=== PATIENT | female | born 1990 | race Caucasian/White ===

== ENCOUNTER 2019-12-30 14:51 | Inpatient (IN) | payer OTHER ==
--- NOTE | 2019-12-30 15:30 | BHS.RME ---
Substance Use & Tx History - Substance Use History Heroin Substance amount: 1-2 bundles Frequency of use: Daily Substance route: Inhalation (ex: sniffing or snorting) Date of Last Use: 12/30/19 (First use this year. No OD, NO Narcan at home) Alcohol Substance amount: 1-2 pints Frequency of use: More than 3 times per week Substance route: Oral Date of Last Use: 12/28/19 (First use this year) Xanax Substance amount: 2-3 tabs of 2 mg each Frequency of use: More than 3 times per week Substance route: Oral Date of Last Use: 12/28/19 (First use this year) Nicotine Substance amount: 10 cigs Frequency of use: Daily Substance route: Smoking Date of Last Use: 12/30/19 (First use age 24 y) Physical/Psych/Mental Status - Behavior General Behavior: Increased activity (restlessness, agitation) Eye Contact: Normal - Cooperativeness Cooperativeness: Cooperative - Thinking Thought Processes: Tight Thought content: Future oriented - Physical Health Problems Is patient presently having any pain?: No Does patient presently have any injuries (include location): No COWS - Scale Resting Pulse: 2= [place] 101-120 Sweatin= Chills/Flushing Restless Observation: 0= Sits Still Pupil Size: 1= Pupils >than Normal Bone or Joint Aches: 0= None Runny Nose/ Eye Tearin= Nasal Congestion GI Upset > 30mins: 0= None Tremor Observation: 0= None Yawning Observation: 0= None Anxiety or Irritability: 0= None Goose Flesh Skin: 0=Smooth Skin COWS Score: 5 CIWA Nausea/Vomitin-No Nausea/No Vomiting Muscle Tremors: None Anxiety: 0-No Anxiety, at Ease Agitation: 0-Normal Activity Paroxysmal Sweats: 1-Minimal Palms Moist Orientation: 0-Oriented Tacttile Disturbances: 0-None Auditory Disturbances: 1-Very Mild Visual Disturbances: 0-None Headache: 0-None Present CIWA-Ar Total Score: 2
--- NOTE | 2019-12-30 17:56 | HP ---
COWS - Scale Resting Pulse: 2= [place] 101-120 Sweatin=Flushed/Facial Moisture Restless Observation: 1= Difficult to Sit Still Pupil Size: 2= Moderately Dilated (Pupils = 4 mm) Bone or Joint Aches: 0= None Runny Nose/ Eye Tearin= Nasal Congestion GI Upset > 30mins: 1= Stomach Cramp Tremor Observation: 1= Tremor [place], Not Seen Yawning Observation: 0= None Anxiety or Irritability: 2=Irritable/Anxious Goose Flesh Skin: 0=Smooth Skin COWS Score: 12 CIWA Score Nausea/Vomitin-No Nausea/No Vomiting Muscle Tremors: 1-None Visible, but [place] Anxiety: 1-Mildly Anxious Agitation: 1-Slight > Activity Paroxysmal Sweats: 3 Orientation: 0-Oriented Tacttile Disturbances: 0-None Auditory Disturbances: 0-None Visual Disturbances: 0-None Headache: 0-None Present CIWA-Ar Total Score: 6 - Admission Criteria OAS Guidelines: Admission for Medically Managed Detox: Requires at least one of the followin. CIWA greater than 12 2. Seizures within the past 24 hours 3. Delirium tremens within the past 24 hours 4. Hallucinations within the past 24 hours 5. Acute intervention needed for co occurring medical disorder 6. Acute intervention needed for co occurring psychiatric disorder 7. Severe withdrawal that cannot be handled at a lower level of care (continued vomiting, continued diarrhea, abnormal vital signs) requiring intravenous medication and/or fluids 8. Patient presents the following: None of the above Admission Criteria Met: Admission criteria not met Admission ROS S - [facility] Chief Complaint: "I'm here because I want to detox and get off drugs" Allergies/Adverse Reactions: Allergies Allergy/AdvReac Type Severity Reaction Status Date / Time Penicillins Allergy Verified 12/30/19 18:30 History of Present Illness: 29 yo presents with withdrawal symptoms seeking detox. Utox: + MOP/FEN/ RACHELL: 0.0 HCG: Neg Hx alcohol related blackout - states last 5 days ago. Denies seizures or overdoses. Alcohol use began off and on since age 24. Heavy use began about 4-5 months ago. Currently drinking 1 pint 3x/wk. Last drink 2 days ago. Heroin use began at age 29. Using for about 4 -5 months. 2-4 bundles/d ay/nasally. Last used today about 12 noon. Denies methadone. States was treated about 1 week ago w/ methadone but left. Xanax use began at age 29 x past 4-5 months. Last used about 2 days ago. (Utox neg for BZO) Nicotine use began at age 24. Smokes 3-4 cig/day. Today's EKG reviewed. Patient concerned about withdrawal symptoms and requesting a split dose taper. Patient declines nicotine patch - will accept prn nicotine gum. PMHx: (R) ear Infection - on ear drops - has 4 days left to take. States dx'd w/ COVID in April 2019 - states was isolated. No recent known exposure. MHHx: Insomnia. Denies other issues. Denies thoughts of harming self or others. SHx: Domiciled. Unemployed. Denies legal issues. Search Terms: Yolanda Mathis, 1990 Search Date: 12/30/2019 18:09:29 PM The Drug Utilization Report below displays all of the controlled substance prescriptions, if any, that your patient has filled in the last twelve months. The information displayed on this report is compiled from pharmacy submissions to the Department, and accurately reflects the information as submitted by the pharmacies. This report was requested by: Sudha Smith | Reference #: [id number] There are no results for the search terms that you entered. Exam Limitations: No Limitations - Ebola screening Have you traveled outside of the country in the last 21 days: No (Hx COVID 04/2019) Have you had contact with anyone from an Ebola affected area: No Have you been sick,other than usual withdrawal symptoms: No Do you have a fever: No - Review of Systems Constitutional: Chills, Diaphoresis, Changes in sleep (Difficulty falling and staying asleep), Unintentional Wgt. Loss EENT: reports: Ear Discharge (Was in (R) ear - but resolving), Nose Congestion Respiratory: reports: No Symptoms reported Cardiac: reports: No Symptoms Reported GI: reports: No Symptoms Reported : reports: No Symptoms Reported Musculoskeletal: reports: No Symptoms Reported Integumentary: reports: No Symptoms Reported Neuro: reports: Tremors Endocrine: reports: No Symptoms Reported Hematology: reports: No Symptoms Reported Psychiatric: reports: Judgement Intact, Orientated x3, Agitated, Anxious Patient History - PPD History Previous Implant?: Yes Documented Results: Negative w/o proof Implanted On Prior [facility] Admission?: No PPD to be Administered?: Yes - Reproductive History Patient is a Female of Child Bearing Age (11 -55 yrs old): Yes Last Menstrual Period: 11/07/19 (usually irregular) Patient : No - Smoking Cessation Smoking history: Current every day smoker Have you smoked in the past 12 months: Yes Aproximately how many cigarettes per day: 4 Hx Chewing Tobacco Use: No Initiated information on smoking cessation: Yes 'Breaking Loose' booklet given: 12/30/19 - Substance & Tx. History Hx Alcohol Use: Yes Hx Substance Use: Yes Substance Use Type: Alcohol, Heroin, Opiates Hx Substance Use Treatment: Yes (detox (did not complete)) - Substances abused Heroin Substance route: Inhalation Frequency: Daily Amount used: 3 to 4 bundles Age of first use: 29 Date of last use: 12/30/19 Alprazolam (Xanax) Substance route: Oral Frequency: Daily Amount used: not sure of the dose Age of first use: 29 Date of last use: 12/29/19 Alcohol Substance route: Oral Frequency: Daily Amount used: 1 pint of liqour Age of first use: 24 Date of last use: 12/28/19 Admission Physical Exam S - Physical General Appearance: Yes: Nourished, Mild Distress, Tremorous, Irritable, Sweating (Increased facial mositure), Anxious HEENTM: Yes: Normal ENT Inspection, Normocephalic, Normal Voice, CHON (Pupils = 4 mm), Pharynx Normal, TM Dull ((R) TM dull. (L) TM wnl. External canals w/o erythema or exudate), Nasal Congestion Respiratory: Yes: Lungs Clear (Pulse Ox = 99%), Normal Breath Sounds, No Respiratory Distress Neck: Yes: No masses,lesions,Nodules, Supple Breast: Yes: Breast Exam Deferred Cardiology: Yes: Regular Rhythm, S1, S2, Tachycardia (HR: 102) Abdominal: Yes: Non Tender, Flat, Soft, Increased Bowel Sounds Genitourinary: Yes: Within Normal Limits Back: Yes: Normal Inspection Musculoskeletal: Yes: full range of Motion, Gait Steady Extremities: Yes: Normal Capillary Refill, Tremors (Slight tremors) Neurological: Yes: Fully Oriented, Alert, Motor Strength 5/5, Normal Response Integumentary: Yes: Normal Color, Warm, Moist (Increased facial moisture), Rash (scattered papular lesions on face, chest and back) Lymphatic: Yes: Within Normal Limits - Diagnostic (1) Opioid dependence with withdrawal Current Visit: Yes Status: Acute (2) History of alcohol use Current Visit: Yes Status: Suspected Comment: Early remission (3) History of anxiolytic abuse Current Visit: Yes Status: Suspected Comment: Early remission (4) Acne Current Visit: Yes Status: Chronic Qualifiers: Acne type: unspecified acne Qualified Code(s): L70.9 - Acne, unspecified (5) Nicotine dependence, unspecified, uncomplicated Current Visit: Yes Status: Chronic Qualifiers: Nicotine product type: cigarettes Qualified Code(s): F17.210 - Nicotine dependence, cigarettes, uncomplicated (6) Insomnia Current Visit: Yes Status: Chronic Qualifiers: Insomnia type: unspecified Qualified Code(s): G47.00 - Insomnia, unspecified (7) History of otitis Current Visit: Yes Status: Acute Comment: On prescribed ear antibiotic ear drops x 6 days. Cleared for Admission [facility] - Detox or Rehab [facility] Level of Care: Medically Managed Detox Regimen/Protocol: Methadone (Patient requesting split dosing for detox) Claeared for Rehab Admission: No Breathalyzer - Breathalyzer Breathalyzer: 0 POC Urine test - Test device test lot number: [id number] Expiration date: 03/31/21 - Control test control: Yes - Result Urine Test Results: Negative - NO line present Inpatient Rehab Admission - Rehab Decision to Admit Inpatient rehab admission?: No
[2019-12-30] MEDS ORDERED: IBUPROFEN 400 MG TABLET (FP) PO PRN (18:49)
[2019-12-30] MEDS ORDERED: ACETAMINOPHEN 325 MG TABLET (FP) PO PRN ×2 (18:49)
[2019-12-30] MEDS ORDERED: MAGNESIUM HYDROX 2400MG/30ML ORAL SUSPENSION 30 ML CUP PO PRN (18:49)
[2019-12-30] MEDS ORDERED: BISMUTH SUBSALICYLATE 524 MG/30 ML UD PO PRN (18:49)
[2019-12-30] MEDS ORDERED: ONDANSETRON *ODT* 4 MG TABLET SL ONE (18:49)
[2019-12-30] MEDS ORDERED: P-EPHED 60MG/TRIPROLIDI 2.5MG TABLET PO PRN (18:49)
[2019-12-30] MEDS ORDERED: NICOTINE POLACRILEX 2 MG GUM BUC PRN (18:49)
[2019-12-30] MEDS ORDERED: MENTHOL/PHENOL 1 EACH UD MM PRN (18:49)
[2019-12-30] MEDS ORDERED: MAGNESIUM CITRATE 300 ML BOTTLE PO PRN (18:49)
[2019-12-30] MEDS ORDERED: METHOCARBAMOL 500 MG TABLET PO PRN (18:49)
[2019-12-30] MEDS ORDERED: guaiFENesin 200 MG/10 ML 10 ML UNIT-DOSE CUPS PO PRN (18:49)
[2019-12-30] MEDS ORDERED: MAG HYDROX/AL HYDROX/SIMETH 30 ML UNIT-DOSE CUP PO PRN (18:49)
[2019-12-30] MEDS ORDERED: cloNIDine HCL 0.1 MG TABLET PO PRN (18:49)
[2019-12-30] MEDS ORDERED: METHADONE HCL 10 MG TABLET (FOR DETOX USE ONLY) PO ONE ×2 (19:01→23:00)
[2019-12-30 19:09] VITALS: BMI 26.6
[2019-12-30] MEDS ORDERED: COLLOIDAL OATMEAL 1 BAR EACH TP PRN (19:49)
[2019-12-30] MEDS ORDERED: TRIMETHOBENZAMIDE HCL 200MG/2ML INJ IM PRN (19:49)
[2019-12-30] MEDS: diazePAM 5 MG TABLET PO PRN (19:57)
[2019-12-30] MEDS ORDERED: diazePAM 5 MG TABLET PO PRN (20:02)
[2019-12-30] MEDS ORDERED: hydrOXYzine PAMOATE 25 MG CAPSULE (FP) PO SCH (22:00)
[2019-12-30] MEDS: MELATONIN 5 MG TABLETS PO SCH (22:17)
[2019-12-30] MEDS: THIAMINE HCL 100 MG TABLET (FP) PO SCH (22:19)
[2019-12-30] MEDS: NEOMYCIN/POLYMYXN/HC OTIC SUSPENSION 10 ML BOTTLE AD SCH ×2 (22:24→23:23)
[2019-12-30] MEDS ORDERED: traZODone HCL 50 MG TABLET (FP) PO ONE (23:00)
[2019-12-31] MEDS: diazePAM 5 MG TABLET PO PRN ×2 (06:42→22:15)
[2019-12-31] MEDS: NEOMYCIN/POLYMYXN/HC OTIC SUSPENSION 10 ML BOTTLE AD SCH ×5 (06:44→23:54)
[2019-12-31] MEDS ORDERED: METHADONE HCL 10 MG TABLET (FOR DETOX USE ONLY) PO ONE (10:00)
[2019-12-31] MEDS: PRENATAL VITAMINS W/ FOLIC ACID TABLET (FP) PO SCH (10:20)
[2019-12-31 10:58] LABS: HEMATOCRIT 39.3 % (32.4-45.2); MCH 28.2 pg (25.7-33.7); MCHC 33.2 g/dl (32.0-36.0); MEAN CELL VOLUME 84.9 fl (80-96); MEAN PLT VOLUME 10.6 fl (7.5-11.1); PLATELET COUNT 192 K/MM3 (134-434); RBC 4.63 M/mm3 (3.60-5.2); RDW 13.5 % (11.6-15.6); WHITE BLOOD COUNT 7.7 K/mm3 (4.0-10.0)
--- NOTE | 2019-12-31 11:36 | CONSULT ---
[facility] Psychiatric Consult - Data Date of interview: 12/31/19 Admission source: [facility] Identifying data: First visit to [facility] [place] and admission to [address] [place] [address] for this 29 y/o female self-referred for detoxification treatment. KANWAL issues : alcohol, opioid, benzodiazepine (xanax), nicotine. Patient is single, no dependents, domiciled, unemployed and supported on food stamps. Substance Abuse History: Discussed with the patient. KANWAL profile as follows : Smoking history: Current every day smoker. Have you smoked in the past 12 months: Yes. Aproximately how many cigarettes per day: 4. Hx Chewing Tobacco Use: No. Initiated information on smoking cessation: Yes. 'Breaking Loose' booklet given: 12/30/19. - Substance & Tx. History. Hx Alcohol Use: Yes. Hx Substance Use: Yes. Substance Use Type: Alcohol, Heroin, Opiates. Hx Substance Use Treatment: Yes (detox (did not complete)). - Substances abused. Heroin. Substance route: Inhalation. Frequency: Daily. Amount used: 3 to 4 bundles. Age of first use: 29. Date of last use: 12/30/19. Alprazolam (Xanax). Substance route: Oral. Frequency: Daily. Amount used: not sure of the dose. Age of first use: 29. Date of last use: 12/29/19. Alcohol. Substance route: Oral. Frequency: Daily. Amount used: 1 pint of liqour. Age of first use: 24. Date of last use: 12/28/19. History of multiple KANWAL treatment failures. Medical History: Patient endorses good general health. Psychiatric History: Patient denies history of psychiatric hospitalizations, OPD care or suicide attempts. Physical/Sexual Abuse/Trauma History: Not discussed. Patient declines. Additional Comment: Toxicology is positive for opiates. Mental Status Exam - Mental Status Exam Alert and Oriented to: Time, Place, Person Cognitive Function: Good Patient Appearance: Unkempt, Disheveled Mood: Withdrawn, Irritable Affect: Mood Congruent, Constricted Patient Behavior: Fatigued, Appropriate, Cooperative Speech Pattern: Clear, Appropriate Voice Loudness: Normal Thought Process: Intact, Goal Oriented Thought Disorder: Not Present Hallucinations: Denies Suicidal Ideation: Denies Homicidal Ideation: Denies Insight/Judgement: Poor Sleep: Poorly, Difficulty falling asleep Appetite: Good Gait/Station: Normal Psychiatric Findings - Problem List ([place] 1, 2,3) (1) Opioid dependence with withdrawal Current Visit: Yes Status: Acute (2) Alcohol use disorder Current Visit: Yes Status: Chronic (3) Benzodiazepine dependence Current Visit: Yes Status: Chronic (4) Nicotine dependence, unspecified, uncomplicated Current Visit: Yes Status: Chronic Qualifiers: Nicotine product type: cigarettes Qualified Code(s): F17.210 - Nicotine dependence, cigarettes, uncomplicated (5) Substance induced mood disorder Current Visit: Yes Status: Suspected (6) Insomnia Current Visit: Yes Status: Chronic Qualifiers: Insomnia type: unspecified Qualified Code(s): G47.00 - Insomnia, unspe cified - Initial Treatment Plan Initial Treatment Plan: Psychoeducation. Sleep hygiene. Detoxification. Insomnia is addressed with melatonin at bedtime (with patient's consent). Observation.
[2019-12-31] MEDS ORDERED: PNEUMOC 13-VAL CONJ-DIP CRM/PF 0.5 ML DISP.SYRIN IM ONE (12:00)
[2019-12-31 12:12] LABS: ALBUMIN 3.4 g/dl (3.4-5.0); BILIRUBIN,TOTAL 0.3 mg/dL (0.2-1); BLOOD UREA NITROGEN 11.4 mg/dL (7-18); CALCIUM 8.9 mg/dL (8.5-10.1); CREATININE 0.8 mg/dL (0.55-1.3); POTASSIUM 3.9 mmol/L (3.5-5.1); TOT PROT 6.6 g/dl (6.4-8.2)
--- NOTE | 2019-12-31 12:20 | PN ---
[facility] CIWA - CIWA Score Nausea/Vomitin-No Nausea/No Vomiting Muscle Tremors: None Anxiety: 2 Agitation: 0-Normal Activity Paroxysmal Sweats: 3 Orientation: 0-Oriented Tacttile Disturbances: 0-None Auditory Disturbances: 0-None Visual Disturbances: 0-None Headache: 1-Very Mild CIWA-Ar Total Score: 6 BHS COWS - Scale Resting Pulse: 0= [place] 80 or Below Sweatin= No chills or Flushing Restless Observation: 1= Difficult to Sit Still Pupil Size: 0= Normal to Room Light Bone or Joint Aches: 2= Severe Diffuse Aches Runny Nose/ Eye Tearin= None GI Upset > 30mins: 0= None Tremor Observation of Outstretched Hands: 0= None Yawning Observation: 1= 1-2x During Session Anxiety or Irritability: 2=Irritable/Anxious Goose Flesh Skin: 0=Smooth Skin COWS Score: 6 S Progress Note (SOAP) Subjective: c/o headache, anxiety, irritability, and muscle aches. Objective: 12/31/19 12:19 Vital Signs 12/31/19 12/31/19 06:57 09:09 Temperature 97.1 F L 97.3 F L Pulse Rate 65 58 L Respiratory 18 16 Rate Blood Pressure 101/69 84/45 L O2 Sat by Pulse 96 Oximetry (%) Laboratory Last Values WBC 7.7 K/mm3 (4.0-10.0) 12/31/19 07:30 RBC 4.63 M/mm3 (3.60-5.2) 12/31/19 07:30 Hgb 13.0 GM/dL (10.7-15.3) 12/31/19 07:30 Hct 39.3 % (32.4-45.2) 12/31/19 07:30 MCV 84.9 fl (80-96) 12/31/19 07:30 MCH 28.2 pg (25.7-33.7) 12/31/19 07:30 MCHC 33.2 g/dl (32.0-36.0) 12/31/19 07:30 RDW 13.5 % (11.6-15.6) 12/31/19 07:30 Plt Count 192 K/MM3 (134-434) 12/31/19 07:30 MPV 10.6 fl (7.5-11.1) 12/31/19 07:30 Sodium 140 mmol/L (136-145) 12/31/19 07:30 Potassium 3.9 mmol/L (3.5-5.1) 12/31/19 07:30 Chloride 106 mmol/L (98-107) 12/31/19 07:30 Carbon Dioxide 29 mmol/L (21-32) 12/31/19 07:30 Anion Gap 5 MMOL/L (8-16) L 12/31/19 07:30 BUN 11.4 mg/dL (7-18) 12/31/19 07:30 Creatinine 0.8 mg/dL (0.55-1.3) 12/31/19 07:30 Est GFR (CKD-EPI)AfAm 114.66 12/31/19 07:30 Est GFR (CKD-EPI)NonAf 98.93 12/31/19 07:30 Random Glucose 77 mg/dL (74-106) 12/31/19 07:30 Calcium 8.9 mg/dL (8.5-10.1) 12/31/19 07:30 Total Bilirubin 0.3 mg/dL (0.2-1) 12/31/19 07:30 AST 13 U/L (15-37) L 12/31/19 07:30 ALT 15 U/L (13-61) 12/31/19 07:30 Alkaline Phosphatase 55 U/L (45-117) 12/31/19 07:30 Total Protein 6.6 g/dl (6.4-8.2) 12/31/19 07:30 Albumin 3.4 g/dl (3.4-5.0) 12/31/19 07:30 Syphilis Serology Non-reactive (NONREACTIVE) 12/31/19 07:30 HIV Ag/Ab Combo Qual Negative (NEGATIVE) 12/31/19 07:30 Labs noted. Assessment: 12/31/19 12:19 AOX3, in no acute respiratory distress. Full ROM, ambulating in the unit. Withdrawal symptoms. Plan: continue detox.
[2019-12-31] MEDS: MELATONIN 5 MG TABLETS PO SCH (22:13)
[2019-12-31] MEDS: THIAMINE HCL 100 MG TABLET (FP) PO SCH (22:13)
[2019-12-31] MEDS ORDERED: METHADONE HCL 5 MG TABLET (FOR DETOX USE ONLY) PO ONE (23:00)
[2020-01-01] MEDS: NEOMYCIN/POLYMYXN/HC OTIC SUSPENSION 10 ML BOTTLE AD SCH ×4 (06:12→23:49)
[2020-01-01] MEDS: PRENATAL VITAMINS W/ FOLIC ACID TABLET (FP) PO SCH (09:39)
[2020-01-01] MEDS ORDERED: METHADONE HCL 10 MG TABLET (FOR DETOX USE ONLY) PO ONE ×2 (10:00→23:00)
--- NOTE | 2020-01-01 10:29 | PN ---
S CIWA - CIWA Score Nausea/Vomitin-No Nausea/No Vomiting Muscle Tremors: 2 Anxiety: 1-Mildly Anxious Agitation: 0-Normal Activity Paroxysmal Sweats: 1-Minimal Palms Moist Orientation: 0-Oriented Tacttile Disturbances: 0-None Auditory Disturbances: 0-None Visual Disturbances: 0-None Headache: 1-Very Mild CIWA-Ar Total Score: 5 BHS COWS - Scale Resting Pulse: 0= [place] 80 or Below Sweatin= No chills or Flushing Restless Observation: 0= Sits Still Pupil Size: 0= Normal to Room Light Bone or Joint Aches: 1= Mild Discomfort Runny Nose/ Eye Tearin= None GI Upset > 30mins: 1= Stomach Cramp Tremor Observation of Outstretched Hands: 2= Slight Tremor Visible Yawning Observation: 0= None Anxiety or Irritability: 1=Feels Anxious/Irritable Goose Flesh Skin: 0=Smooth Skin COWS Score: 5 S Progress Note (SOAP) Subjective: 29 years old female admitted on 12/30/19 for alcohol benzo opiate withdrawal sx management treating with valium prn and methadone (split) detox regiments feeling ok today ate breakfast in room resting in bed limited conversation with staff Objective: 01/01/20 10:29 Vital Signs - 24 hr 12/31/19 12/31/19 12/31/19 12:48 16:34 20:36 Temperature 97.7 F 97.8 F 97.5 F L Pulse Rate 78 98 H Respiratory 18 18 18 Rate Blood Pressure 105/76 120/80 O2 Sat by Pulse 95 98 Oximetry (%) 01/01/20 01/01/20 05:51 09:35 Temperature 97.7 F 97.3 F L Pulse Rate 63 79 Respiratory 18 18 Rate Blood Pressure 90/60 103/69 O2 Sat by Pulse 98 Oximetry (%) Laboratory Tests 12/30/19 12/31/19 12/31/19 18:00 07:30 07:30 WBC RBC Hgb Hct MCV MCH MCHC RDW Plt Count MPV Sodium Potassium Chloride Carbon Dioxide Anion Gap BUN Creatinine Est GFR (CKD-EPI)AfAm Est GFR (CKD-EPI)NonAf Random Glucose Calcium Total Bilirubin AST ALT Alkaline Phosphatase Total Protein Albumin Syphilis Serology Non-reactive COVID-19 (FALGUNI) Not detected HIV Ag/Ab Combo Qual Negative 12/31/19 12/31/19 07:30 07:30 WBC 7.7 RBC 4.63 Hgb 13.0 Hct 39.3 MCV 84.9 MCH 28.2 MCHC 33.2 RDW 13.5 Plt Count 192 MPV 10.6 Sodium 140 Potassium 3.9 Chloride 106 Carbon Dioxide 29 Anion Gap 5 L BUN 11.4 Creatinine 0.8 Est GFR (CKD-EPI)AfAm 114.66 Est GFR (CKD-EPI)NonAf 98.93 Random Glucose 77 Calcium 8.9 Total Bilirubin 0.3 AST 13 L ALT 15 Alkaline Phosphatase 55 Total Protein 6.6 Albumin 3.4 Syphilis Serology COVID-19 (FALGUNI) HIV Ag/Ab Combo Qual lab noted Assessment: 01/01/20 10:29 alcohol benzo opiate withdrawal Plan: valium prn and methadone regiments
[2020-01-01 22:11] LABS: EPI CELLS >36 /uL (0-25.1); HYALINE CASTS 1 /uL (0-3.1); URINE APPEARANCE CLEAR; URINE BACTERIA 748 /uL (0-1359); URINE BILIRUBIN NEGATIVE (NEGATIVE); URINE COLOR YELLOW; URINE GLUCOSE (UA) NEGATIVE (NEGATIVE); URINE KETONE NEGATIVE (NEGATIVE); URINE LEUK ESTERASE 2+ (NEGATIVE); URINE NITRITE NEGATIVE (NEGATIVE); URINE PROTEIN NEGATIVE (NEGATIVE); URINE RBC 20 /uL (0-23.9); URINE UROBILINOGEN 0.2 mg/dL (0.2-1.0); URINE WBC 78 /uL (0-25.8)
[2020-01-01] MEDS: MELATONIN 5 MG TABLETS PO SCH (22:15)
[2020-01-01] MEDS: THIAMINE HCL 100 MG TABLET (FP) PO SCH (22:15)
[2020-01-01] MEDS: diazePAM 5 MG TABLET PO PRN (22:19)
[2020-01-02] MEDS ORDERED: diazePAM 5 MG TABLET PO PRN (01:00)
[2020-01-02] MEDS ORDERED: diazePAM 5 MG TABLET PO SCH (06:00)
[2020-01-02] MEDS: NEOMYCIN/POLYMYXN/HC OTIC SUSPENSION 10 ML BOTTLE AD SCH ×4 (06:35→23:11)
[2020-01-02] MEDS ORDERED: METHADONE HCL 5 MG TABLET (FOR DETOX USE ONLY) PO ONE (10:00)
[2020-01-02] MEDS: PRENATAL VITAMINS W/ FOLIC ACID TABLET (FP) PO SCH (10:11)
--- NOTE | 2020-01-02 10:28 | EKG ---
Test Reason : Blood Pressure : / mmHG Vent. Rate : 070 BPM Atrial Rate : 070 BPM P-R Int : 114 ms QRS Dur : 092 ms QT Int : 384 ms P-R-T Axes : 061 057 025 degrees QTc Int : 414 ms NORMAL SINUS RHYTHM NORMAL ECG NO PREVIOUS ECGS AVAILABLE Confirmed by Agusto Avalos ([id number]) on 01/02/2020 10:28:29 AM Referred By: Confirmed By:Agusto Avalos
--- NOTE | 2020-01-02 12:28 | PN ---
S CIWA - CIWA Score Nausea/Vomitin-Mild Nausea/No Vomiting Muscle Tremors: 1-None Visible, but [place] Anxiety: 1-Mildly Anxious Agitation: 0-Normal Activity Paroxysmal Sweats: No Perspiration Orientation: 0-Oriented Tacttile Disturbances: 0-None Auditory Disturbances: 0-None Visual Disturbances: 0-None Headache: 0-None Present CIWA-Ar Total Score: 3 S COWS - Scale Resting Pulse: 0= [place] 80 or Below Sweatin= No chills or Flushing Restless Observation: 0= Sits Still Pupil Size: 0= Normal to Room Light Bone or Joint Aches: 1= Mild Discomfort Runny Nose/ Eye Tearin= None GI Upset > 30mins: 0= None Tremor Observation of Outstretched Hands: 1= Tremor [place], Not Seen Yawning Observation: 0= None Anxiety or Irritability: 1=Feels Anxious/Irritable Goose Flesh Skin: 0=Smooth Skin COWS Score: 3 S Progress Note (SOAP) Subjective: 29 years old female admitted on 12/30/19 for alcohol benzo opiate withdrawal sx management treating with valium prn and methadone detox regiments feeling tired and "down" seen by psychiatrist no medical intervention denies suicidal no homocidal ideations encourage ms delvalle to consider medication assisted treatment program for behavior and psychosocial therapies Objective: 01/02/20 12:31 Vital Signs - 24 hr 01/01/20 01/02/20 01/02/20 20:38 06:39 08:35 Temperature 97.5 F L 97.8 F 96.8 F L Pulse Rate 78 76 74 Respiratory 18 18 18 Rate Blood Pressure 103/79 99/64 100/65 O2 Sat by Pulse 97 96 96 Oximetry (%) Laboratory Tests 12/30/19 12/31/19 12/31/19 18:00 07:30 07:30 WBC RBC Hgb Hct MCV MCH MCHC RDW Plt Count MPV Sodium Potassium Chloride Carbon Dioxide Anion Gap BUN Creatinine Est GFR (CKD-EPI)AfAm Est GFR (CKD-EPI)NonAf Random Glucose Calcium Total Bilirubin AST ALT Alkaline Phosphatase Total Protein Albumin Urine Color Urine Appearance Urine pH Ur Specific [place] Urine Protein Urine Glucose (UA) Urine Ketones Urine Blood Urine Nitrite Urine Bilirubin Urine Urobilinogen Ur Leukocyte Esterase Urine WBC (Auto) Urine RBC (Auto) Urine Casts (Auto) U Epithel Cells (Auto) Urine Bacteria (Auto) Syphilis Serology Non-reactive COVID-19 (FALGUNI) Not detected HIV Ag/Ab Combo Qual Negative 12/31/19 12/31/19 01/01/20 07:30 07:30 22:00 WBC 7.7 RBC 4.63 Hgb 13.0 Hct 39.3 MCV 84.9 MCH 28.2 MCHC 33.2 RDW 13.5 Plt Count 192 MPV 10.6 Sodium 140 Potassium 3.9 Chloride 106 Carbon Dioxide 29 Anion Gap 5 L BUN 11.4 Creatinine 0.8 Est GFR (CKD-EPI)AfAm 114.66 Est GFR (CKD-EPI)NonAf 98.93 Random Glucose 77 Calcium 8.9 Total Bilirubin 0.3 AST 13 L ALT 15 Alkaline Phosphatase 55 Total Protein 6.6 Albumin 3.4 Urine Color Yellow Urine Appearance Clear Urine pH 8.0 Ur Specific [place] 1.007 L Urine Protein Negative Urine Glucose (UA) Negative Urine Ketones Negative Urine Blood Negative Urine Nitrite Negative Urine Bilirubin Negative Urine Urobilinogen 0.2 Ur Leukocyte Esterase 2+ H Urine WBC (Auto) 78 Urine RBC (Auto) 20lab Urine Casts (Auto) 1 U Epithel Cells (Auto) >36 Urine Bacteria (Auto) 748 Syphilis Serology COVID-19 (FALGUNI) HIV Ag/Ab Combo Qual uti bactrim ds bid Assessment: 01/02/20 12:32 alcohol benzo opiate withdrawal Plan: valium prn and methadone regiments
[2020-01-02] MEDS: SULFAMETHOXAZOLE/TRIMETHOPRIM 800MG/160MG D.S. TABLET PO SCH ×2 (14:22→22:19)
[2020-01-02 21:07] VITALS: BP 102/61; PULSE 74; TEMP 97.8
[2020-01-02] MEDS: THIAMINE HCL 100 MG TABLET (FP) PO SCH (22:20)
[2020-01-02] MEDS: MELATONIN 5 MG TABLETS PO SCH (22:20)
[2020-01-02] MEDS ORDERED: METHADONE HCL 10 MG TABLET (FOR DETOX USE ONLY) PO ONE (23:00)
--- NOTE | 2020-01-03 03:15 | DS ---
[facility] Detox Discharge Summary Admission Date: 12/30/19 Discharge Date: 01/03/20 - History Present History: Alcohol Dependence, Opioid Dependence, Sedative Dependence Additional Comments: CLIENT REQUESTING TO SIGN OUT AMA. D/W CLIENT ABOUT RISKS ASSOC W/ LEAVINGS AT THIS TIME AND ABRUPTLY DC TXMENT. CLIENT IS A/O X3 NAD OR ACUTE WITHDRAWAL SX'S NOTED. SHE IS IRRITABLE AND NOT RECEPTIVE TO WRITERS DISCUSSION OR ENCOURAGEMENT. "JUST LEAVE ME ALONE", "I AM LEAVING" DENIES SI/HI/AVH, SOB, C.P. A/O X3 NAD NCAT AMBULATING SELF W/O DIFFICULTY, STEADY GAIT NOTED Vital Signs Temperature 97.8 F 01/02/20 20:34 Pulse Rate 74 01/02/20 20:34 Respiratory Rate 18 01/02/20 20:34 Blood Pressure 102/61 01/02/20 20:34 O2 Sat by Pulse Oximetry (%) 100 01/02/20 20:34 REFUSING VS/ PE Pertinent Past History: NICOTINE DEP ACNE - Physical Exam Results Vital Signs: Vital Signs Temperature 97.8 F 01/02/20 20:34 Pulse Rate 74 01/02/20 20:34 Respiratory Rate 18 01/02/20 20:34 Blood Pressure 102/61 01/02/20 20:34 O2 Sat by Pulse Oximetry (%) 100 01/02/20 20:34 Pertinent Admission Physical Exam Findings: WITHDRAWAL SX'S Laboratory Tests 12/30/19 12/31/19 12/31/19 18:00 07:30 07:30 WBC RBC Hgb Hct MCV MCH MCHC RDW Plt Count MPV Sodium Potassium Chloride Carbon Dioxide Anion Gap BUN Creatinine Est GFR (CKD-EPI)AfAm Est GFR (CKD-EPI)NonAf Random Glucose Calcium Total Bilirubin AST ALT Alkaline Phosphatase Total Protein Albumin Urine Color Urine Appearance Urine pH Ur Specific [place] Urine Protein Urine Glucose (UA) Urine Ketones Urine Blood Urine Nitrite Urine Bilirubin Urine Urobilinogen Ur Leukocyte Esterase Urine WBC (Auto) Urine RBC (Auto) Urine Casts (Auto) U Epithel Cells (Auto) Urine Bacteria (Auto) Syphilis Serology Non-reactive COVID-19 (FALGUNI) Not detected HIV Ag/Ab Combo Qual Negative 12/31/19 12/31/19 01/01/20 07:30 07:30 22:00 WBC 7.7 RBC 4.63 Hgb 13.0 Hct 39.3 MCV 84.9 MCH 28.2 MCHC 33.2 RDW 13.5 Plt Count 192 MPV 10.6 Sodium 140 Potassium 3.9 Chloride 106 Carbon Dioxide 29 Anion Gap 5 L BUN 11.4 Creatinine 0.8 Est GFR (CKD-EPI)AfAm 114.66 Est GFR (CKD-EPI)NonAf 98.93 Random Glucose 77 Calcium 8.9 Total Bilirubin 0.3 AST 13 L ALT 15 Alkaline Phosphatase 55 Total Protein 6.6 Albumin 3.4 Urine Color Yellow Urine Appearance Clear Urine pH 8.0 Ur Specific [place] 1.007 L Urine Protein Negative Urine Glucose (UA) Negative Urine Ketones Negative Urine Blood Negative Urine Nitrite Negative Urine Bilirubin Negative Urine Urobilinogen 0.2 Ur Leukocyte Esterase 2+ H Urine WBC (Auto) 78 Urine RBC (Auto) 20 Urine Casts (Auto) 1 U Epithel Cells (Auto) >36 Urine Bacteria (Auto) 748 Syphilis Serology COVID-19 (FALGUNI) HIV Ag/Ab Combo Qual LABS NOTED - Treatment Hospital Course: Discharged Condition Good (STABLE) Patient has Accepted a Rehab Referral to: [facility] - Medication Discharge Medications: Ambulatory Orders Naloxone HCl [Narcan] 4 mg NS ASDIR PRN #1 spray 01/01/20 - Diagnosis (1) Opioid dependence with withdrawal Status: Resolved (2) Acne Status: Chronic Qualifiers: Acne type: unspecified acne Qualified Code(s): L70.9 - Acne, unspecified (3) Alcohol use disorder Status: Chronic (4) Benzodiazepine dependence Status: Chronic (5) Insomnia Status: Chronic Qualifiers: Insomnia type: unspecified Qualified Code(s): G47.00 - Insomnia, unspecified (6) Substance induced mood disorder Status: Suspected - AMA Did Patient Leave Against Medical Advice: Yes
[2020-01-03] MEDS ORDERED: METHADONE HCL 5 MG TABLET (FOR DETOX USE ONLY) PO ONE (10:00)
[2020-01-03] MEDS ORDERED: diazePAM 2 MG TABLET PO PRN (19:47)
[2020-01-03] MEDS ORDERED: METHADONE HCL 5 MG TABLET PO ONE (23:00)
[2020-01-04] MEDS ORDERED: METHADONE HCL 5 MG TABLET (FOR DETOX USE ONLY) PO ONE (09:00)
== END 2020-01-03 03:20 | disposition left against medical advice (07) | DRG 770 ==
LOC: YASAS 14:51 → Y3N 18:26
PROVIDERS: ADMIT Allergy & Immunology; ATTEND Allergy & Immunology
PROC: HZ2ZZZZ Detoxification Services for Substance Abuse Treatment (ICD-10-PCS; principal; 2019-12-30)
DX: F11.23 Opioid dependence with withdrawal (principal); F10.230 Alcohol dependence with withdrawal, uncomplicated; F13.230 Sedative, hypnotic or anxiolytic dependence with withdrawal, uncomplicated; F17.210 Nicotine dependence, cigarettes, uncomplicated; F19.24 Other psychoactive substance dependence with psychoactive substance-induced mood disorder; G47.00 Insomnia, unspecified; L70.9 Acne, unspecified; R00.0 Tachycardia, unspecified; Z86.19 Personal history of other infectious and parasitic diseases; Z88.0 Allergy status to penicillin; Z56.0 Unemployment, unspecified
CPT/HCPCS: 36415; 80053; 81003; 85027; 86780; 87389; 90670; 93005; 93010; Q0162; U0003